=== PATIENT | male | born 1980 | race Caucasian/White ===

== ENCOUNTER 2020-03-23 13:45 | Inpatient (IN) | payer MEDICAID ==
[~2020-03-23] VITALS: Ht 175.3 cm; Wt 127.5 kg
[~2020-03-23 13:45] MED LIST: BENAZEPRIL40 MG; BUSPAR; GLU10; LANTUS; LIPITOR; METFORMIN850 MG; PROZAC10 M1 PO; SEROQUEL50 MG PO; TRAMADOL; VALIUM
[2020-03-23 13:59] VITALS: Ht 175.3 cm; Wt 127.5 kg
--- NOTE | 2020-03-23 14:50 | NUR ---
PT REPORTS TO ED FOR PAIN TO BUTTOCK RELATED TO "BOILS," FEVERS AND DIZZINESS. PT REPORTS HE FREQUENTLY GETS ABSCESSES TO SACRAL REGION AND HE FEELS THIS IS ANOTHER EPISODE. NO OBVIOUS BREAK IN SKIN. LEFT BUTTOCK APPEARS RED AND SWOLLEN WITH PAIN ON PALPATION. PT IS SLIGHTLY DROWSY, BUT EASILY AROUSABLE. ABLE TO ANSWER QUESTIONS APPROPRIATELY. DENIES ANY RECENT DRUG USE. PTS BLOOD SUGAR AT BEDSIDE IS 553. PT REPORTS HE ALSO HAS MULTIPLE EPISODES OF DKA. MD AWARE OF BLOOD GLUCOSE LEVEL
[2020-03-23 15:32] LABS: BASOPHIL % 0.5 % (0.2-1.5); PLATELET COUNT 306 x10^3mcL (152-348); RED CELL DISTRIBUTION WIDTH 13.5 % (12.1-16.2)
[2020-03-23 15:52] LABS: ALKALINE PHOSPHATASE 131 U/L (46-116); ALT/SGPT 20 U/L (16-63); AST/SGOT 11 U/L (15-37); BILIRUBIN TOTAL 0.5 mg/dL (0.20-1.00); CALCIUM 8.4 mg/dL (8.5-10.1); CARBON DIOXIDE 23.3 mmol/L (21-32); CHLORIDE SERUM 91 mmol/L (98-107); CREATININE SERUM 1.2 mg/dL (0.7-1.3); GFR1 > 60 mL/min; POTASSIUM SERUM 4.2 mmol/L (3.5-5.1); TOTAL PROTEIN, SERUM 6.7 g/dL (6.4-8.2)
[2020-03-23 16:00] LABS: ALBUMIN 2.3 g/dL (3.4-5.0); SODIUM SERUM 122 mmol/L (136-145)
[2020-03-23 16:01] LABS: GLUCOSE SERUM 547 mg/dL (74-106)
--- NOTE | 2020-03-23 16:53 | NUR ---
PT LAYING IN GURNEY WITH EYES CLOSED. EASILY AROUSABLE. GOOD CHEST RISE AND FALL NOTED.
--- NOTE | 2020-03-23 17:10 | NUR ---
PT TO CT VIA GURNEY. AWAKE, ALERT, RESP E/U
--- NOTE | 2020-03-23 17:28 | NUR ---
PT BACK FROM CT WITHOUT INCIDENT. PT LAYING ON STOMACH, STATING LAYING ON BACK IS PAINFUL. PT CURRENTLY REQUESTING PAIN MEDICATION.
--- NOTE | 2020-03-23 20:08 | NUR ---
PATIENT SEEN WEEPY. FENTANYL GIVEN ORDERED. PA AT THE BEDSIDE TO DO I&D.
[2020-03-23 21:40] LABS: CHOLESTEROL/HDL RATIO 3.3; MAGNESIUM 1.7 mg/dL (1.8-2.4); PHOSPHOROUS 3.2 mg/dL (2.5-4.9)
--- NOTE | 2020-03-23 23:15 | NUR ---
PATIENT IS SLEEPING, NO DISTRESS.
--- NOTE | 2020-03-24 02:00 | NUR ---
PATIENT IS SLEEPING EASILY AWAKE. PATINE VOID IN THE BED, URINE SEEN RUNNING OVER THR FLOOR. LINE CHANGED.
[2020-03-24 05:22] LABS: UA SPECIFIC GRAVITY 1.025 (1.005-1.035); microscopic required? YES; urine erythrocyte 1+ (NEGATIVE)
[2020-03-24 05:54] LABS: BASOPHIL % 0.4 % (0.2-1.5); PLATELET COUNT 301 x10^3mcL (152-348); RED CELL DISTRIBUTION WIDTH 13.8 % (12.1-16.2)
[2020-03-24 06:05] LABS: CALCIUM 8.5 mg/dL (8.5-10.1); CHLORIDE SERUM 95 mmol/L (98-107); CREATININE SERUM 1.1 mg/dL (0.7-1.3); GFR1 > 60 mL/min; GLUCOSE SERUM 278 mg/dL (74-106); MAGNESIUM 1.8 mg/dL (1.8-2.4); PHOSPHOROUS 2.5 mg/dL (2.5-4.9); SODIUM SERUM 128 mmol/L (136-145)
[2020-03-24 06:27] LABS: AMPHETAMINE QUAL UR POSITIVE (See below)
--- NOTE | 2020-03-24 07:00 | NUR ---
PATIENT IS DROWSY, MOANS WHEN AWAKEN.BLOOD SUGAR 268 MG/DL. INSULIN COVERAGE WAS GIVEN. PATIENT REQUESTING PAIN MEDICATION WHEN AWAKEN.
--- NOTE | 2020-03-24 07:43 | NUR ---
FIRST CONTACT WITH PT THIS SHIFT. PT LAYING IN PRONE POSITION WITH EYES CLOSED. STATES HE IS IN PAIN AND IS REQUESTING MEDICATION. PT IS AWAKE, ALERT, RESP E/U. MAINTENCE NS RUNNING TO [facility]. ON FULL CM AND PULSE OX.
--- NOTE | 2020-03-24 08:00 | NUR ---
PT REPORTING PAIN TO BUTTOCK. PT MEDICATED PER PRN ORDER.
--- NOTE | 2020-03-24 09:02 | NUR ---
PT REQUESTING FOOD. I INFORMED PT THAT HE WAS ON NPO STATUS. HE ASKED THE REASON FOR CONTINUED NPO STATUS IF HE ALREADY HAD AN ATTEMPTED I&D LAST NIGHT. I SPOKE WITH RESIDENT MD AND HE STATED THE PT MIGHT REQUIRE A MORE EXTENSIVE SURGERY TO CLEAR HIS ABSCESS AND NEEDS TO STAY NPO. I RELAYED THE MESSAGE AND THE PT VERBALIZED UNDERSTANDING.
--- NOTE | 2020-03-24 11:53 | NUR ---
SURGEON AT BEDSIDE TO SPEAK WITH PT.
--- NOTE | 2020-03-24 11:58 | NUR ---
SURGEON STATED THAT PT WILL BE GOING TO SURGERY WITHIN THE NEXT HOUR. PT AGREED TO SURGERY.
--- NOTE | 2020-03-24 12:45 | NUR ---
CONSENT AND PREOP CHECKLIST PLACED IN CHART.
--- NOTE | 2020-03-24 13:20 | NUR ---
PT TRANSPORTED VIA GURNEY TO SURGERY WITH RN LAKEISHA. PT IS AWAKE, ALERT, RESP E/U WITH NAD NOTED.
--- NOTE | 2020-03-24 16:24 | NUR ---
RECEIVED PT FROM OR. PT AOX4, DROWSY, RESP E/U ON RA. DENIES SOB OR PAIN AT THIS TIME, NO ACUTE DISTRESS NOTED. IV TO JAVIER PATENT/INTACT, WNL. VS FOLLOWS: T: 99.0, HR: 87, RR: 18, BP: 95/59 (70). DRESSING TO L BUTTOCKS CDI S/P I & D. BED IN LOWEST POSITION AND CALL LIGHT WITHIN REACH. WILL CONTINUE TO MONITOR.
--- NOTE | 2020-03-24 18:36 | NUR ---
PT RSTING IN BED, AXO4, RESP E/U ON RA. STILL C/O MILD DROWSINESS. DENIES SOB, HEADACHE, NAUSEA OR PAIN. NO ACUTE DISTRESS NOTED. IV TO RFA PATENT/INTACT, WNL. DRESSING TO L BUTTOCKS CDI. BED IN LOWEST POSITION AND CALL LIGHT WITHIN REACH. WILL ENDORSE TO ONCOMING NURSE.
[2020-03-24 19:23] VITALS: BP 93/59
--- NOTE | 2020-03-24 20:01 | NUR ---
RECIEVED PT FROM DAY SHIFT NURSE. A&O X 4. LUNG CTA. ON RA. NO ADN. DRESSING TO LT BUTTOCKS CDI. DENIES PAIN. BED LOCKED AND LOWERED. CALL LIGHT WITHIN REACH. WILL CONTINUE WITH PLAN OF CARE.
[2020-03-24 20:47] VITALS: BP 98/55
[2020-03-25 04:53] VITALS: BP 86/47
--- NOTE | 2020-03-25 07:08 | NUR ---
PT SLEEPING IN BED. A&O X4. RR EVEN AND UNLABORED. ON RA. NO ADN. DENIES PAIN. DRESSING CDI. BED LOCKED AND LOWERED. CALL LIGHT WITHIN REACH. WILL ENDORSE TO DAY SHIFT NURSE.
--- NOTE | 2020-03-25 07:30 | NUR ---
AAO TIMES 4. TELE # 42 SR. IV SITE RAC PATENT, CDI. COOPERATIVE. DRESSING TO LEFT BUTTOCK WITH MODERATE DRAINAGE, SANGUINOUS. PERIPHERAL PULSES PALPABLE. NO EDEMA.
[2020-03-25 08:50] LABS: CALCIUM 7.5 mg/dL (8.5-10.1); CARBON DIOXIDE 20.9 mmol/L (21-32); CREATININE SERUM 1.6 mg/dL (0.7-1.3); POTASSIUM SERUM 4.4 mmol/L (3.5-5.1)
[2020-03-25 08:56] LABS: BASOPHIL % 0.1 % (0.2-1.5); PLATELET COUNT 291 x10^3mcL (152-348); RED CELL DISTRIBUTION WIDTH 13.6 % (12.1-16.2)
[2020-03-25 09:23] VITALS: BP 101/54
--- NOTE | 2020-03-25 12:12 | NUR ---
ANDREW PHARMACIST AWARE OF OF TROUGH OF 19.3, BUT THE VANCOMYCIN WAS ALREADY INFUSING. ANOTHER ONE WILL BE DRAWN AT 1600 PRIOR TO NEXT DOSE, I WILL CHECK WITH LAB THAT THEY DRAW IT FIRST, AND THEN I WILL WAIT FOR THE RESULTS.
[2020-03-25 17:17] VITALS: BP 102/63
--- NOTE | 2020-03-25 17:44 | NUR ---
VANCO TROUGH 15.6. I CALLED PORFIRIO PHARMACIST, AND I TOLD HER THE LEVEL, I AM HOLDING THE 1700 DOSE, AND SHE WILL CHANGE THE DOSE AMOUNT.
--- NOTE | 2020-03-25 19:16 | NUR ---
AAO TIMES 4. TELE # 42 SR. VS'S STABLE. COOPERATIVE. DRESSING TO LEFT BUTTOCK CHANGED TO [place]LAND DRESSING, PACKING LEFT IN, DRESSING CDI. NO SOB.
[2020-03-25 21:21] VITALS: BP 111/64
--- NOTE | 2020-03-26 01:37 | NUR ---
VANCOMYCIN 1G DUE AT 01:00. LAST VANCO TROUGH 15.6 ON 03/25. 18:00 DOSE HELD. RN CONTACTED OUTSIDE PHARMACY AND SPOKE WITH MIRLANDE (PHARMACIST). PER MIRLANDE OUTSIDE PHARMACY UNABLE TO DOSE VANCO. PER MIRLANDE CONTINUE TO HOLD AND HE WILL PLACE A NOTE FOR IN HOUSE PHARMACY TO REVIEW FOR AM DOSE.
--- NOTE | 2020-03-26 01:46 | NUR ---
PT SLEEPIN IN SUPINE POSITION WITH HOB ELEVATED 30 DEGREES. RESPIRATIONS EVEN UNLABORED, NO SOB NOTED. NON VERBAL PAIN INDICATORS ABSENT. NS@150ML/HR RUNNING TO [facility], PATENT, NO COMPLICATIONS TO SITE. BED IN LOWEST POSITION , SIDE RAILS X 2, CALL LIGHT WIHTIN REACH
--- NOTE | 2020-03-26 02:09 | NUR ---
PT RECEIVED LYING IN BED SUPINE SLEEPING WITH HOB ELEVATED 30 DEGRESS. PT EASILY AROUSABLE TO VERBAL AND TACTILE STIMULI. A/OX4, CALM AND COOPERAATIVE. PT C/O PAIN TO BUTTOCKS, PAIN MEDS ADMISNITERED ORDERED. TELE 42 SR HR 70, DENIES CHEST PAIN, DIZZINESS AND LIGHTHEADEDENSS. PERIPHERAL PULSES PALP[ABLE. NO EDEMA NOTED. RESPIRSTIONS EVEN UNLABORED, CTA, RA, DENIES SOB. BS ACTIVE, ABD SOFT AND ROUND, NON TENDER, DENIES N/V. LBM 03/23. DENIES URINARY ISSUES. URINAL AT BEDSIDE, EMPTIED 700 ML CLEAR YELLOW URINE. GENERALIZED WEAKNESS, BUT AMBULATORY WITH STEADY GAIT. SURGICAL INCISION TO L BUTTOCKS WITH DRESSING C/D/I. IV RFA 18G RUNNING NS@150ML/HR, PATENT, NO COMPLIATIONS TO SITE. BED IN LOWEST POSITOIN, SIDE RAILS X 2, CALL LIGHT WITHIN REACH.
[2020-03-26 06:02] VITALS: BP 107/70
--- NOTE | 2020-03-26 08:00 | NUR ---
LATE ENTRY- AM NOTES PATIENT IN BED COMPLAINING THAT HE WANTS TO LEAVE. HE GETS CLAUSTERPHOBIC AND DOES NOT WANT TO BE HERE LONGER. DR CAME IN AND SPOKE TO PATIENT. PATIENTWAS EDUCATED ON HIS WELLBEING AND AGREED TO STAY. VS ARE STABLE. NO C/O PAIN OR SOB, NOR OTHER DISCOMFORT. WILL CONTINUE MONITORING.
[2020-03-26 08:59] LABS: CALCIUM 8.2 mg/dL (8.5-10.1); CARBON DIOXIDE 25.4 mmol/L (21-32); CHLORIDE SERUM 104 mmol/L (98-107); CREATININE SERUM 1.2 mg/dL (0.7-1.3); GFR1 > 60 mL/min; GLUCOSE SERUM 245 mg/dL (74-106); MAGNESIUM 2.4 mg/dL (1.8-2.4); PHOSPHOROUS 2.5 mg/dL (2.5-4.9); POTASSIUM SERUM 4.7 mmol/L (3.5-5.1); SODIUM SERUM 136 mmol/L (136-145)
[2020-03-26 09:43] VITALS: BP 103/64
[2020-03-26 10:57] LABS: BASOPHIL % 0.3 % (0.2-1.5); PLATELET COUNT 353 x10^3mcL (152-348); RED CELL DISTRIBUTION WIDTH 13.9 % (12.1-16.2)
--- NOTE | 2020-03-26 12:07 | NUR ---
WOUND CARE EVALUATION NOTE: WOUND ASSESSMENT DONE TO LEFT BUTTOCK SURGICAL WOUND S/P I&D [id number] MODERATE AMOUNT SEROSANGUINOUS DRAINAGE,100% GRANULATING TISSUE, JUQAUIN-WOUND SKIN INTACT NO EROTHYMA, PAIN 5/10. POC DISCUSSED WITH PT. PER PT. HE HAS SOMEONE WHO CAN HELP WITH DRESSING CHANGE WHEN DISCHARGED. POC DISCUSSED WITH CHARGE NURSE MAY DISCHARGE PT. WITH WOUND CARE SUPPLIES WHEN CLEAR BY DOCTOR. RECOMMENDATIONS: -CLEANSE LEFT BUTTOCK WOUND WITH NS AND GAUZE, PAT DRY, APPLY HYDROGEL TO WOUND BED, PACK WOUND WITH KERLIX ROLL,COVER WITH DRY DRESSING DAILY AND PRN WITH SOILING. -KEEP AREA DRY AND CLEAN AT ALL TIME. -PLEASE DISCHARGE WOUND CARE SUPPLIES WITH PT.
--- NOTE | 2020-03-26 13:28 | NUR ---
NO BLOOD GLUCOSE MACHINE HAS BEEN AVAILABLE, WILL DO ACCUCHECK SOON CAN. BIANCA ALSO NOT AVAILABLE AT THIS TIME, CALLED PHARMACY TO BRING ONE UP SOON HEY ARE ABLE TO.
--- NOTE | 2020-03-26 19:22 | NUR ---
PATIENT ASLEEP IN BED. IV WNL, INTACT. PATIENT SLEPT MOST DAY. PATIENT IS COMPLIANT. NO C/O PAIN OR DISCOMFORT AT THIS TIME. PATIENT REMAINED STABLE. WILL ENDORSE REPORT TO TOOLING INSPECTOR.
[2020-03-26 21:30] VITALS: BP 145/79
[2020-03-27 06:00] VITALS: BP 127/81
--- NOTE | 2020-03-27 06:49 | NUR ---
NO ACUTE CHANGES OVERNIGHT. PT SLEPT MOST OF THE NIGHT. A/OX4, CALM AND COOPERATIVE. RA, NO RESPIRATORY DISTRESS NOTED OR REPORTED. NO BM DURING SHIFT. ADEQUATE UOP, PT USES URINAL. SURGICAL INCISION SITE L BUTTOCKS C/D/I. PT C/O PAIN 2X TO L BUTTOCKS. NORCO 7.5/325MG ADMISNITERED ORDERED, EFFECTIVE. SL RFA D/C AND RESTARTED 20G, PATENT, RUNNING NS@150ML/HR. BED IN LOWEST POSITOIN, SIDE RAILS X 2, CALL LIGHT WITHIN REACH
--- NOTE | 2020-03-27 07:12 | NUR ---
RECEIVED PT FROM FILLER PICKER RN. AOX4 ABLE TO MAKE NEEDS KNOWN, DENIES PEREZ/DIZZINESS. LUNGS CTA, ON RA, DENIES SOB/COUGH, RESPIRATIONS E/U. BOWELS SOUNDS ACTIVE, DENIES N/V/D, ABDOMEN SOFT/ROUND. PT IS AMBULATORY BUT SLEEPS MOST OF THE DAY. WOUND TO L BUTTOCK COVERED WITH DRESSING, WILL PERFORM WOUND CARE ORDERED. PT DENIES PAIN AT THIS TIME. IV TO RFA RUNNING NS AT 150 ML/HR. CALL LIGHT IN REACH, WILL CONTINUE TO MONITOR.
[2020-03-27 08:27] LABS: BASOPHIL % 0.3 % (0.2-1.5); PLATELET COUNT 217 x10^3mcL (152-348); RED CELL DISTRIBUTION WIDTH 14.4 % (12.1-16.2)
[2020-03-27 10:06] LABS: CALCIUM 8.2 mg/dL (8.5-10.1); CARBON DIOXIDE 21.7 mmol/L (21-32); CHLORIDE SERUM 98 mmol/L (98-107); CREATININE SERUM 1.1 mg/dL (0.7-1.3); GFR1 > 60 mL/min; GLUCOSE SERUM 101 mg/dL (74-106); MAGNESIUM 2.5 mg/dL (1.8-2.4); POTASSIUM SERUM 3.6 mmol/L (3.5-5.1); SODIUM SERUM 132 mmol/L (136-145)
[2020-03-27 12:14] VITALS: BP 146/87
[2020-03-27 13:02] LABS: rbc morphology (normal/abnorm) NORMAL (NORMAL)
[2020-03-27 16:28] VITALS: BP 169/85
--- NOTE | 2020-03-27 19:30 | NUR ---
RECEIVED PT AWAKE ALERT AND VERBALLY RESPONSIVE.C/O L BUTTOCK WOUND PAIN 10/10 TO ACHING PAIN.NORCO 7.5 MG PO ADMINISTED.COMFORT MEASURES RENDERED.WILL CONTINUE TO MONITOR.
--- NOTE | 2020-03-27 21:00 | NUR ---
RECEIVED A CALL FROM LEA RODRÍGUEZ(JORDYN).UPDATED ON PTS CONDITION.WANTED A BOOST FOR SUPPLEMENT AND OK FOR NGT PLACEMENT AND /OR TPN IF MOTHER IS NOT EATING.RECOMMENDED A NUTRITION CONSULT.WILL ENDORSE TO AM NURSE.
[2020-03-27 21:53] VITALS: BP 127/68
--- NOTE | 2020-03-28 05:07 | NUR ---
PT WAS ASLEEP BUT EASILY AROUSABLE THROUGHOUT SHIFT. PT RECEIVED X1 DOSE OF HYDROCODONE 7.5/325 TAB FOR SEVERE PAIN IN BUTTOCK. PT REPORTED RELIEF OF PAIN UPON REASSESSMENT AND NO C/O OF PAIN THROUGHOUT REST OF SHIFT. PT RESPONDED WELL TO CLINDAMYCIN AND ZOSYN. PT DID NOT PRESENT WITH ANY ADVREAC.
[2020-03-28 06:21] VITALS: BP 126/80
--- NOTE | 2020-03-28 07:13 | NUR ---
RECEIVED PT FROM JOURNAL CLERK RN. AOCarolina ABLE TO MAKE NEEDS KNOWN. PT CONTINUES ON RA, NO SOB/COUGH REPORTED. WOUND TO L BUTTOCK, DRESSING CDI. DENIES PAIN AT THE TIME. IV TO RFA IN PLACE, RUNNING NS AT 150ML/HR, CALL LIGHT IN REACH, WILL CONTINUE TO MONITOR.
[2020-03-28 09:13] VITALS: BP 143/78
[2020-03-28 12:49] VITALS: BP 141/83
[2020-03-28] MEDS ORDERED: CLEOCIN HCL300 MG PO (14:21)
[2020-03-28] MEDS ORDERED: ZES20 PO (14:23)
--- NOTE | 2020-03-28 15:38 | NUR ---
1. Continue with CCHO diet as tolerate 2. Recommend Glucerna BID to meet high kcal and protein demand. It will provide additional 440kcal and 20g protein.
--- NOTE | 2020-03-28 15:38 | NUR ---
Initial Nutrition Assessment: [address] SOUMYA GARCIA 39M HR Nursing trigger: Poor PO > 3 days Consult: wound Dx: Abscess x 2, cellulitis, sepsis PMHx: HTN, DM, depression, Anxiety PSHx: none noted Labs: (03/27) Na 132L, BUN 39H, Ca 8.2L, Mg 2.5H, (03/23) A1C 14.1H, AST 11L, ALK PH 131H, Alb 2.3L Meds: Glucotrol, Zosyn, Cleocin, Sodium, Humulin, Seroquel, Prozac, Lantus, Vancocin, [place], Glucophage, Zestril Diet: CCHO PO intake since admission: none noted Ht: 175.26cm/69in Wt: 127.459kg/280lbs BMI: 41.5kg/m2 Bed scale: 286.3lbs IBW: 72.73kg/160lbs %IBW: 175.26% ABW: 86kg UBW: 281lbs 5 days ago Age: 39 Food Allergies: NKFA per pt Edema: none noted Last BM: 03/26 Skin: wound to left buttock noted Jr: 20 Per H and P (03/28), Patient is a 39-year-old homeless male with history of diabetes, hypertension, depression, and anxiety who presents to the ED with 5-day history of left buttock pain associated with body aches, polydipsia, polyuria and subjective fevers. Patient reports history of boils in the past. He denies any history of IVDU. Patient has been non-compliant with diabetes regimen due to homeless status. He states pain and symptoms worsening which prompted him to go to the ED. Otherwise denies chest pain, sob, and headaches Pt was admitted with dx: Sepsis 2/2 left buttock cellulitis, sepsis 2/2 left lower extremity cellulitis r/o abscess, DMOOC with hyperglycemia, h/o HTN, h/o Depression, h/o Anxiety, DVT RD Note (03/28/2020) Pt was seen lying in bed during bedside visit. Pt reported diarrhea but tolerating current diet with good appetite. Pt could not recall recent weight changes, and his usual body weight was 281lbs 5 days ago. Pt followed a regular diet and did not take supplements. Per pt's RN, pt ate everything from breakfast today. Problem with: N/V/D/C: diarrhea per pt Problems with: Chewing: Swallowing: none per pt Current appetite: good per pt and RN Recent wt change: denied %wt change: denied Height: 5'9" Vitamin/Supplement use: none per pt Special diet at home: none per pt Physical activity: none per pt Nutrition education given (specify specific nutrition education and handout given): Diabetes education provided. Written education "Carbohydrate Counting for People with Diabetes" and "Diabetes Label Reading Tips" were provided to pt, and pt acknowledged. Food-drug interactions? Education given? n/a Estimated Nutritional Needs Based on adjusted body weight (86kg) Energy: 9925-0255 kcal/day (25-30 kcal/kg for wound healing and weight reduction) Protein: 107-129 g/day (1.25-1.5 g/kg for wound healing) Fluid: 8224-0341 mL/day (30-35 mL/kg for draining wound) Nutrition Diagnosis: 1. Excessive carbohydrate intake r/t nutrition knowledge deficit and medically non-compliant a/e/b pt followed a regular diet, not compliant with diabetes regimen, and elevated A1C 14.1. 2. Obese r/t imbalance intake and output a/e/b pt reported not practicing physical activity and BMI = 41.5kg/m2. 3. Increased energy and protein needs r/t skin integrity a/e/b pt has wounds. Intervention 1. Continue with [facility] diet as tolerate 2. Recommend Glucerna BID to meet high kcal and protein demand. It will provide additional 440kcal and 20g protein. Monitor/Evaluate Goal: PO intake at least 75% of estimated needs Monitor: PO intake, Labs, GI function, Skin integrity F/U in 3-5 days as moderate risk 03/31-
[2020-03-28 16:09] VITALS: BP 141/83
--- NOTE | 2020-03-28 16:36 | NUR ---
PT RECEIVED DC INSTRUCTIONS, PT AWARE OF CLEOCIN TO TAKE AT HOME X7 DAYS. PT INSTRUCTED ON WOUND CARE ORDER, COPY OF WRITTEN ORDER GIVEN TO PT AND ALSO EDUCATED PT'S MOM MEET ON HOW TO CHANGE IT, PT AND MOTHER VERBALIZED UNDERSTANDING. PT REFUSED TO TAKE PICTURE AT THIS TIME, STATED HE DID NOT WANT HIS DRESSING REMOVED SINCE IT HAD ALREADY BEEN CHANGED TODAY. THEY WERE ALSO MADE AWARE THAT HH NURSE WOULD BE VISITING THE FOLLOWING DAY. IV CATHETER DC AND INTACT. DC INSTRUCTIONS WERE GIVEN TO MOTHER ALONG WITH WOUND CARE SUPPLIES. ALL QUESTIONS AND CONCERNS ADDRESSED, NO COMPLICATIONS NOTED DURING DISCHARGED. PT WAS ESCORTED OUT BY MYSELF.
[2020-03-28] MEDS ORDERED: AUGMENTIN 875-1 EACH PO (16:59)
== END 2020-03-28 16:37 | disposition home health service (06) | DRG 710 ==
LOC: ED 13:45 → DU 19:16 → MU 19:16 → EDBEDREQ 19:18 → MU 03-24 16:24 → DU 03-25 09:01 → MU 03-26 13:55
PROVIDERS: Emergency Medicine; Internal Medicine; ADMIT Family Medicine; ATTEND Family Medicine
PROC: 0J9M0ZZ Drainage of Left Upper Leg Subcutaneous Tissue and Fascia, Open Approach (ICD-10-PCS; principal; 2020-03-23)
PROC: 0JBM0ZZ Excision of Left Upper Leg Subcutaneous Tissue and Fascia, Open Approach (ICD-10-PCS; 2020-03-23)
DX: A41.9 Sepsis, unspecified organism (principal); M72.6 Necrotizing fasciitis; E11.65 Type 2 diabetes mellitus with hyperglycemia; E87.1 Hypo-osmolality and hyponatremia; F32.9 Major depressive disorder, single episode, unspecified; F41.9 Anxiety disorder, unspecified; L03.317 Cellulitis of buttock; K60.3 Anal fistula; Z20.822 Contact with and (suspected) exposure to COVID-19; I10 Essential (primary) hypertension; F19.10 Other psychoactive substance abuse, uncomplicated; L98.8 Other specified disorders of the skin and subcutaneous tissue; Z88.5 Allergy status to narcotic agent; Z59.0 Homelessness; E44.1 Mild protein-calorie malnutrition
CPT/HCPCS: 82962; 97110-GP; 97116-GP; G0378; J1815; J2001; J2405; J2543; J3010; J3370; J3490; J7030; J7050

== ENCOUNTER 2020-04-05 16:00 | Emergency (ER) | payer MEDICAID ==
[~2020-04-05] VITALS: Ht 175.3 cm; Wt 126.1 kg
[~2020-04-05 16:00] MED LIST changes: +AUGMENTIN 875-1 EACH PO; +CLEOCIN HCL300 MG PO; +ZES20 PO
[2020-04-05 16:01] VITALS: Ht 175.3 cm; Wt 126.1 kg
[2020-04-05 17:19] VITALS: BP 141/85
== END 2020-04-05 17:19 | disposition home or self-care (01) ==
LOC: ED 16:00
DX: K61.1 Rectal abscess (principal); I10 Essential (primary) hypertension; E11.9 Type 2 diabetes mellitus without complications; Z88.5 Allergy status to narcotic agent; Z48.01 Encounter for change or removal of surgical wound dressing
CPT/HCPCS: 82962

== ENCOUNTER 2020-04-12 18:22 | Emergency (ER) | payer MEDICAID | END 2020-04-12 20:13 | disposition left against medical advice (07) | LOC: ED 18:22 | DX: Z53.21 Procedure and treatment not carried out due to patient leaving prior to being seen by health care provider (principal) ==